=== PATIENT | female | born 1980 ===

== ENCOUNTER 2023-05-23 00:40 | Outpatient (CLI) | payer MEDICAID ==
[2023-05-23] VITALS (21 sets, daily range): BP systolic 95–136; BP diastolic 46–81; PULSE 83–103
== END 2023-05-23 23:59 | disposition home or self-care (01) ==
LOC: CARD DIAG 00:40
PROVIDERS: ATTEND Nurse Practitioner Family
DX: R55 Syncope and collapse (principal)
CPT/HCPCS: 93660

== ENCOUNTER 2024-11-28 11:34 | Outpatient (CLI) | payer MEDICAID ==
--- NOTE | 2024-11-28 14:10 | RADIOLOGY REPORT ---
CLINICAL HISTORY: EFFUSION, RIGHT ANKLE TECHNIQUE: Multisequence multiplanar MRI images of the right ankle were obtained without contrast. COMPARISON: None FINDINGS: BONES/JOINTS: No acute fracture or focal marrow contusion. No osteochondral defect or significant ch ondromalacia. No significant joint effusion. TENDONS: Mild tendinosis of the distal tibialis posterior tendon. Type 1 accessory navicular. Flexor digitorum longus and flexor hallucis longus tendons are intact. Peroneus longus and brevis tendons ar e intact. Tibialis anterior, extensor hallucis longus, and extensor digitorum longus tendons are inta ct. Achilles tendon is intact with no significant tendinosis or peritendinitis. LIGAMENTS: Deltoid ligament complex is intact. Spring ligament complex is intact. Anterior and eye dropper assembler ior talofibular ligaments are intact. Syndesmotic ligaments are intact. Calcaneofibular ligament is i ntact. PLANTAR FASCIA: Unremarkable. No significant thickening or edema. SINUS TARSI: Unremarkable. No significant edema. MUSCLES: Unremarkable. No significant atrophy. OTHER: No other significant findings. IMPRESSION: 1. Mild tendinosis of the distal tibialis posterior tendon. 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 2. No other soft tissue or osseous abnormality identified in the right ankle as detailed above.
== END 2024-11-28 23:59 | disposition home or self-care (01) ==
LOC: MRI02 11:34
PROVIDERS: ATTEND Podiatrist Foot & Ankle Surgery
DX: M25.471 Effusion, right ankle (principal); M77.51 Other enthesopathy of right foot and ankle
CPT/HCPCS: 73721